=== PATIENT | female | born 1930 | race Caucasian/White ===

== ENCOUNTER → 2018-08-27 | Outpatient (CLI) | payer MEDICARE, OTHER ==
--- NOTE | 2018-08-27 17:49 | CONS ---
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 She has had numerous injections to bilateral greater trochanteric bursa in the past. She recently had one 2 months ago to the left. It did not help. She has not done physical therapy in years. The patient cannot take NSAIDs secondary to cardiac issues. On examination she has a significant Trendelenburg gait and a weak abductors. This could be from regular and common bursitis of the greater trochanteric bursa or it could be abductor tendon tears secondary to numerous steroid injection in the past or this could be from abductor weakness from chronic nerve root compression I am recommending against any further injections. Given the number of injections she has had in the past. I am not recommending an MRI at this time which would be used to further evaluate for tendon tears versus muscle atrophy. At this time she is not a surgical candidate and she is visiting from out of town and an MRI would not change the current medical management. Plan: Physical therapy Diclofenac gel Follow-up in 8-12 weeks if still in town Otherwise follow-up with local orthopedic surgeon. Consultation Date/Type/Reason Admit Date/Time Date of Consultation: Aug 27, 2018 Reason for Consultation Left greater trochanteric bursitis Date/Time of Note DATE: 08/27/18 TIME: 17:39 Hx of Present Illness This is a 88-year-old female who presents with a history of left hip pain. Patient states the pain is in the lateral aspect of the hip. The pain does radiate to the knee and at times to the foot. It is described as sharp at times and as a dull ache. The pain is rated as a 8/10 with activity and 5/10 at rest. She has had this problem for many years bilaterally. She has received numerous steroid injections. She last received a steroid injection to the left greater trochanteric bursa 2 months ago. Had no relief. She has not had physical therapy in number of years. Walking tolerance is 1 block. Walker external support. The patient does admit to a limp. It is difficult to sleep on the affected side at night secondary to pain. There are symptoms to suggest referred pain from the back with radicular symptoms. Treatment to date has included oral anti-inflammatories, activity modification, support devices. The patient states that treatment to date has not provided adequate relief of symptoms, prompting consultation. Duration: Years Injury: No Walking tolerance: 1 block Limp: Yes Support: Walker Stairs: Avoids use Physical Therapy: None recently Injections: 2 months ago to the left hip greater trochanteric bursa NSAID's: Contraindicated secondary to cardiac issues Prior surgery: No Back pain: He has Knee pain: Yes Risk of AVN : No Patient denies fever, chills, shortness of breath, chest pain, nausea/vomiting, constipation, diarrhea, numbness, and tingling. Past Medical History CHF Mitral valve stenosis Gout Psoriasis osteoporosis Pacemaker Pneumonia Family History Significant Family History: no pertinent family hx Social History Alcohol Use: none Smoking Status: Never smoker Drug Use: none Exam/Review of Systems Exam Vitals Weight: 160 pound Height: 4 foot 11 inches Heart Rate: 89 Blood Pressure: 149/72 Exam general: Alert, oriented. Vital signs: Noted on the chart. Heart: Regular rate and rhythm. Lungs: No respiratory distress. No accessory muscle use. Musculoskeletal: Well developed female in no apparent distress. Gait demonstrates a Trendelenburg with antalgic components and no short leg component. Standing, the pelvis is oblique and supine there is no true leg length discrepancy. There is tenderness over trochanteric bursa and IT band As well as over the greater sciatic notch. Positive Obers Test Range of motion: Flexion: 100 Extension: 0 Internal rotation: 20 External rotation: 45 Abduction: 45 Adduction: 10 Sitting there is pelvic obliquity. Minimal to no pain at the extremes of motion of the affected hip. Skin was intact throughout both lower extremities. Sensation intact to light touch in a sural, saphenous, deep peroneal, superficial peroneal, medial and lateral plantar nerve distribution. Neurovascular exam showed 5/5 strength in the quads, gastroc. 4/5 strength to abductors and EHL/tibialis anterior. normal and symmetrical pulses were palpated in both the dorsalis pedis and posterior tibial arteries. There is no sign of venous stasis. Imaging Imaging The patient received a full set of films and personally reviewed by myself today in clinic including an AP pelvis and an AP and lateral of the affected hip. The hip is reduced. There is no significant loss of joint space. There is mild osteophyte formation. There is no subchondral sclerosis. There are no subchondral cysts. There is no significant deformity of the the proximal femur, femoral neck, or acetabulum. The pelvis is in continuity. Limited evaluation of the lumbar spine on AP pelvis demonstrates there is severe degenerative scoliosis of the lumbar spine with complete loss of disc height on the left side of L3 through L5. Bone quality radiographically: ALEJANDRO Vitale MD Aug 27, 2018 17:49
--- NOTE | 2018-08-29 07:36 | RADRPT ---
PROCEDURE: Pelvis and left hip study CLINICAL INDICATION: PAIN TECHNIQUE: AP pelvis and AP and frog lateral views of the left hip were performed. COMPARISON: None. 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 No acute fracture or disloc ation. No focal bony blastic or lytic lesions. The bones are osteopenic. No erosions. Soft tissues ar e unremarkable. IMPRESSION: 1. 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 2. No acute fractures or dislocations. 3. Osteopenia. RPTAT:AAJJ Physician Paul Date Time Electronically viewed and signed by Demond Spivey Physician on 08/29/2018 07:35 BM/
== END | disposition home or self-care (01) ==
LOC: HKI 16:00
PROVIDERS: ATTEND Orthopaedic Surgery Adult Reconstructive Orthopaedic Surgery
DX: M70.62 Trochanteric bursitis, left hip (principal); I50.9 Heart failure, unspecified; I05.0 Rheumatic mitral stenosis; M10.9 Gout, unspecified; Z95.0 Presence of cardiac pacemaker; Z87.01 Personal history of pneumonia (recurrent)
CPT/HCPCS: 73502; G0463